=== PATIENT | male | born 1955 | race African-American/Black ===

== ENCOUNTER 2019-01-26 11:13 | Emergency (ER) | payer MEDICAID, OTHER ==
[~2019-01-26] VITALS: Ht 170.2 cm; Wt 65.8 kg
--- NOTE | 2019-01-26 11:22 | NUR ---
ABDOMINAL PAIN, URINARY RETENTION. LAST URINATED YESTERDAY MORNING. HAS PAIN ON URINATION, CURRENTLY 8/10 PS. ALSO HAS SLIGHT TEMP. NO ACUTE DISTRESS NOTED. HOOKED TO MONITOR. TECHNICAL STAFF ENGINEER MARSII AT BEDSIDE.
[2019-01-26] MEDS ORDERED: LIDOCAINE 2% JEL UROJET 10 ML MM ONE ×2 (11:25→11:30)
[2019-01-26] MEDS ORDERED: IV NS 0.9% 1,000 ML BAG IV ONE (11:30)
[2019-01-26 11:43] LABS: BASOPHILS % (AUTO) 0.3 % (0.0-2.0); EOSINOPHILS % (AUTO) 0.3 % (0.0-6.0); HEMATOCRIT 42 % (39-51); HEMOGLOBIN 14.6 g/dL (13.5-17.5); LYMPHOCYTES # (AUTO) 0.7 /CMM (0.8-4.8); LYMPHOCYTES % (AUTO) 4.6 % (20.0-44.0); MEAN CORPUSCULAR HGB CONC 35 g/dl (31.0-36.0); MEAN CORPUSCULAR VOLUME 96 fL (80-96); MONOCYTES # (AUTO) 1.6 /CMM (0.1-1.30); MONOCYTES % (AUTO) 10.4 % (2.0-12.0); NEUTROPHILS # (AUTO) 12.5 /CMM (1.8-8.9); NEUTROPHILS % (AUTO) 84.4 % (43.0-81.0); PLATELET COUNT (AUTO) 324 /CMM (150-450); RED BLOOD CELL COUNT(AUTO) 4.41 MIL/uL (4.5-6.0); WHITE BLOOD COUNT (AUTO) 14.9 K/uL (4.3-11.0)
[2019-01-26 11:46] LABS: APPEARANCE,URINE Clear (CLEAR); BILIRUBIN,URINE Negative (NEGATIVE); BLOOD, URINE Moderate Ery/uL (NEGATIVE); COLOR,URINE Yellow (YELLOW); KETONES,URINE 15 (NEGATIVE); LEUKOCYTE ESTERASE ,URINE Negative (NEGATIVE); NITRITE, URINE Negative (NEGATIVE); PH,URINE 6.5 (5.0-8.0); PROTEIN,URINE Negative (NEGATIVE); UGLUCOSE Negative (NEGATIVE); UROBILINOGEN,URINE 0.2 EU/dL (0.2)
[2019-01-26 11:50] LABS: CALCIUM, SERUM 9.1 mg/dL (8.5-10.1); CREATININE 0.9 mg/dL (0.6-1.3); POTASSIUM 3.3 mmol/L (3.5-5.1)
--- NOTE | 2019-01-26 12:00 | NUR ---
IV ACCESS OBTAINED AND IVF INFUSING. ROWE CATH IN PLACE PER PROTOCOL. PT RENAE WELL. WILL CONT TO MONITOR.
[2019-01-26 12:02] LABS: BACTERIA,URINE Rare /HPF (None Seen); SQUAMOUS EPITHELIAL CELL,UR Rare /HPF (None Seen); WBC,URINE 0-2 /HPF (0-3)
--- NOTE | 2019-01-26 13:30 | NUR ---
URINE COMPLETED DRAINING. LEG BAG APPLIED AND INSTRUCTIONS GIVEN. PT STATES FEELING SIGNIFICANTLY BETTER. IV removed. Catheter intact and site benign. Pressure and 4x4 applied to site. No bleeding noted. Patient discharged to home in stable condition. Written and verbal after care instructions given. Patient verbalizes understanding of instruction.
[2019-01-26 13:36] VITALS: BP 157/106
== END 2019-01-26 13:37 | disposition home or self-care (01) ==
LOC: ER 11:13
DX: N40.1 Benign prostatic hyperplasia with lower urinary tract symptoms (principal); R33.8 Other retention of urine; G89.29 Other chronic pain
CPT/HCPCS: 36415; 51702; 80048; 81001; 85025; 99284; J3490; J7030; 81000-TC

== ENCOUNTER 2019-02-01 13:53 | Emergency (ER) | payer MEDICAID ==
[~2019-02-01] VITALS: Ht 170.2 cm; Wt 66.7 kg
--- NOTE | 2019-02-01 14:54 | NUR ---
REMOVED ROWE CATHETER PER DR. HAYNES'S ORDER, PT RENAE WELL. NO ACUTE DISTRESS NOTED AT THIS TIME.
--- NOTE | 2019-02-01 16:00 | NUR ---
ABLE TO URINATE WITHOUT DIFFICULTY, DR. HAYNES AWARE. PENDING DC.
--- NOTE | 2019-02-01 16:07 | NUR ---
PT LEFT W/O SIGNING ACIDR. HAYNES AWARE.
[2019-02-01 16:08] VITALS: BP 138/70
== END 2019-02-01 16:12 | disposition home or self-care (01) ==
LOC: ER 14:01
DX: Z46.6 Encounter for fitting and adjustment of urinary device (principal); G89.29 Other chronic pain; Z60.2 Problems related to living alone
CPT/HCPCS: Z7502